=== PATIENT | male | born 1955 | race Caucasian/White ===

== ENCOUNTER → 2018-07-15 | Outpatient (CLI) | payer BC ==
--- NOTE | 2018-07-15 17:40 | CONS ---
Assessment/Plan Assessment/Plan Hospital Course (Demo Recall) This is a 63-year-old male presenting with right knee traumatic osteoarthritis and left knee osteoarthritis. His arthritis on the right is severe and on the left is moderate. He would be a good surgical candidate for right total knee arthroplasty however he had a 4 coronary artery stents placed in March 2018 and is on dual therapy for anticoagulation. Most likely he would need to wait before holding these medications to prevent the stents from occluding. Therefore surgery for the right knee would be delayed until it was deemed safe to hold this therapy per the cumulative effects analyst. In the meantime we will continue to treat conservatively. Authorizations for bilateral knee steroid injections. In addition secondary to the patient's instability of the right knee and severe osteoarthritis mostly affecting the medial compartment a medial business objects analyst brace on the right knee would significantly help the patient as he probably will need to wait close to a year or more prior to total knee arthroplasty. Follow-up for bilateral knee steroid injections. Consultation Date/Type/Reason Admit Date/Time Date of Consultation: Jul 15, 2018 Reason for Consultation Right worse than left knee pain Date/Time of Note DATE: 07/15/18 TIME: 17:27 Hx of Present Illness Is a 63-year-old male with a chief complaint of right and left knee pain. The pain is worse in the right knee. The pain began approximately 2-3 years ago in the right knee and a few months ago in the left knee. The patient had a severe traumatic injury to the right knee in 1983 and what sounds like a multi- ligamentous knee injury with possible dislocation of the knee. He underwent surgery for this at that time. The patient's pain is in the medial aspect of the right and left knee. Pain is not radiating to the lower leg. The pain is rated as a 10/10 in the right knee. Patient denies complaints of numbness or tingling. The pain is exacerbated by climbing stairs and ambulation. Uses CBD oil. Of note patient has significant cardiac disease and had 4 coronary artery stents placed in March 2018 and he is on dual therapy with aspirin and Ticagrelor. ----- Duration: 2-3 years Injury: Yes Walking tolerance: Not limited but with severe pain Limp: Yes Support: None Swelling: No Crepitation: Yes Instability: Yes Stairs: Uses banister Physical Therapy: Yes Injections: No NSAID's: Contraindicated secondary to cardiac disease Prior surgery: Yes Back pain: No Hip pain: No Risk of AVN : Yes Patient denies fever, chills, shortness of breath, chest pain, nausea/vomiting, constipation, diarrhea, numbness, and tingling. Past Medical History Coronary artery disease Hypertension Myocardial infarction Sinus problems Past Surgical History Right knee [id number] Coronary artery stent in 2006 4 coronary stents placed March 2018 Family History Significant Family History: no pertinent family hx Social History Alcohol Use: heavy (6. A week) Smoking Status: Former smoker Drug Use: none Exam/Review of Systems Exam Vitals Weight: 185 pounds Height: 5 foot 11 inches Temperature: 90.6 Heart Rate: 63 Blood Pressure: 130/84 Respiratory Rate: 12 Exam General: Awake, alert, in no acute distress, pleasant and cooperative Heart: regular rhythm Lungs: breathing comfortably, no tachypnea or dyspnea MUSCULOSKELETAL: Right and Left Knee This is a well developed male who is alert, oriented times three and in no apparent distress. On the right knee there are well-healed medial and lateral incisions. Skin is intact over the right and left knee as well as the lower extremity with no abrasions, lacerations, or ulcerations. Observation of the patient's gait reveals an antalgic gait with varus thrust greater on the right than left. Frontal plane alignment is varus on the right > left knees. There is pain on palpation of medial joint line. The patient demonstrates grinding anteriorly with ROM. Range of motion: 0 extension to approximately 130 degrees of flexion. Collateral ligament testing on the right reveals instability with the MCL at 0 and 30 degrees. Collateral ligament testing on the left reveals no instability with varus or valgus stress at 0 and 30 degrees of flexion. Positive Joseph's on the right and negative on the left and negative posterior drawer bilaterally. Neurovascularly intact with 5/5 EHL/tibialis anterior/gastroc. Sensation intact to light touch in a sural, saphenous, deep peroneal, superficial peroneal, medial and lateral plantar nerve distribution. Palpable, symmetric dorsalis pedis and posterior tibial pulses in both lower extremities. Hip examination normal Imaging Imaging The patient received a standard set of films today that were personally reviewed. Imaging included a standing bilateral knee AP, PA flexion, merchant views and a dedicated lateral of the affected knee: Right knee There is varus alignment of the knee. There is complete loss of joint space medial compartment(s) with significant generative changes in the patellofemoral and lateral compartments as well. There is chondrocalcinosis in the lateral compartment. There is a postsurgical staple in the lateral tibial plateau. There is osteophyte formation. There is subchondral sclerosis. There are subchondral cysts. Degenerative changes are most severe in the medial compartment(s) Left knee There is varus alignment of the knee. There is moderate loss of joint space medial compartment(s). There is osteophyte formation. There is subchondral sclerosis. There are no subchondral cysts. Degenerative changes are most severe in the medial compartment(s) CORTEZ MORENO MD Jul 15, 2018 17:39
--- NOTE | 2018-07-17 06:38 | RADRPT ---
PROCEDURE: Bilateral knee study CLINICAL INDICATION: Pain TECHNIQUE: AP weightbearing, PA 45 degrees flexed weightbearing, lateral weightbearing and sunrise views of the right and left knees were obtained COMPARISON: None FINDINGS: Surgical staple involving the lateral proximal right tibia. No acute fractures or dislocations. Moder ate to severe degenerate joint disease of the right knee worse involving the medial compartment and m ild to moderate degenerate joint disease left knee worse involving the medial compartment. No focal b melissa blastic or lytic lesions. No evidence of right or left knee joint effusion. Soft tissues are unre markable. IMPRESSION: 1. Moderate to severe degenerate joint disease right knee and mild to moderate degenerate joint dise ase left knee without acute fractures dislocations or joint effusions. RPTAT:AAJJ Physician Lisa Date Time Electronically viewed and signed by Amanda Tovar Physician on 07/17/2018 06:38 BM/
== END | disposition home or self-care (01) ==
LOC: HKI 15:14
PROVIDERS: ATTEND Orthopaedic Surgery Adult Reconstructive Orthopaedic Surgery
DX: M17.0 Bilateral primary osteoarthritis of knee (principal); I25.10 Atherosclerotic heart disease of native coronary artery without angina pectoris; I10 Essential (primary) hypertension; I25.2 Old myocardial infarction; Z98.61 Coronary angioplasty status
CPT/HCPCS: 73564; G0463

== ENCOUNTER → 2018-08-12 | Outpatient (CLI) | payer BC ==
--- NOTE | 2018-08-15 20:50 | CONS ---
Consult Date/Type/Reason Admit Date/Time Initial Consult Date Date/Time of Note DATE: 08/15/18 TIME: 20:47 Subjective This is a 63-year-old male following up today for bilateral knee steroid injection. He has known severe traumatic arthritis of the right knee and moderate osteoarthritis left knee. He was determined not to be a good surgical candidate secondary to recent cardiac issues including stent placement. Denies any changes in his knee symptoms. Objective Vitals Weight: 182 pounds Height: 5 foot 11 inches Temperature: 98.4 Heart Rate: 64 Blood Pressure: 138/85 Respiratory Rate: 12 Exam General: Awake, alert, in no acute distress, pleasant and cooperative Heart: regular rhythm Lungs: breathing comfortably, no tachypnea or dyspnea MUSCULOSKELETAL: Bilateral lower extremity. Skin intact Sensation intact to light touch in a sural, saphenous, deep peroneal, superficial peroneal, medial and lateral plantar nerve distribution. Motor is intact, patient able to dorsiflex and plantarflex ankle and extend and flex great toe. Dorsalis Pedis pulse +2, Brisk capillary refill. Compartments are soft. Calves non-tender to palpation bilaterally. Assessment/Plan Hospital Course (Demo Recall) 63-year-old male with known severe right knee traumatic arthritis and moderate left knee osteoarthritis. Patient is currently not a good surgical candidate secondary to cardiac issues. Conservative treatment including injection therapy is being started. Plan: Bilateral knee steroid injection Ice Low impact activities Follow-up PRN Assessment/Plan (Daily) Right and left knee steroid injection procedure: Risks and benefits of steroid injection reviewed with patient. The risks include infection, failure, pain, swelling, nerve/tendon/ligament damage. The patient verbalized understanding and verbal consent was obtained prior to procedure. The right and left knee was prepped in a sterile fashion with alcohol and betadine the site of injection was confirmed. Anteromedial approach was used. The skin and capsule was anesthetized with 3mL 1% lidocaine. The right and left knee were each injected with 2mL 1% lidocaine, 2mL 0.25% bupivacaine, 40mg Depo- Medrol. Injection flowed freely. Good hemostasis was achieved and no complications noted. The patient tolerated the procedure well. Limit activity and ice for 24-48 hours CORTEZ MORENO MD Aug 15, 2018 20:50
== END | disposition home or self-care (01) ==
LOC: HKI 13:01
PROVIDERS: ATTEND Orthopaedic Surgery Adult Reconstructive Orthopaedic Surgery
DX: M17.0 Bilateral primary osteoarthritis of knee (principal)
CPT/HCPCS: 20610; Z7500; Z7610; G0463